=== PATIENT | female | born 1965 | race Caucasian/White ===

== ENCOUNTER 2016-07-10 11:31 | Emergency (ER) | payer MEDICAID ==
[2016-07-10 11:49] VITALS: RESP 18; BMI 29.7
[2016-07-10 12:02] VITALS: TEMP 98
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
[2016-07-10 13:08] LABS: URINE BILIRUBIN NEGATIVE (NEGATIVE); URINE BLOOD NEGATIVE (NEGATIVE); URINE GLUCOSE (UA) NEGATIVE (NEGATIVE); URINE KETONE NEGATIVE (NEGATIVE); URINE LEUKOCYTE ESTERASE TRACE Leu/uL (NEGATIVE); URINE PROTEIN TRACE mg/dL (<30 mg/dL); URINE UROBILINOGEN 0.2 E.U./dL (<1 E.U./dL)
[2016-07-10 13:10] LABS: URINE APPEARANCE CLEAR (CLEAR); URINE COLOR YELLOW (YELLOW)
[2016-07-10 13:19] LABS: URINE RBC NEGATIVE /hpf (0-2); URINE WBC 0 - 2 /hpf (0-6)
[2016-07-10 13:27] VITALS: BP 144/58; PULSE 89; O2SAT 100
[2016-07-10] MEDS ORDERED: Albuterol-Ipratrop 3 mg / 0.5 (3 ml) UD ONE (23:04)
== END 2016-07-10 13:45 | disposition home or self-care (01) ==
LOC: ED 11:31
DX: M54.5 Low back pain (principal)
CPT/HCPCS: 81001; 84703; 87086; 96372; 99283; J1885

== ENCOUNTER 2018-03-15 17:28 | Emergency (ER) | payer OTHER, MEDICAID ==
[2018-03-15 18:00] VITALS: RESP 18; TEMP 98.6; O2SAT 100
[2018-03-15 18:04] VITALS: BMI 31.6
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
[2018-03-15] MEDS ORDERED: Methocarbamol 500 MG Tab PO ONE (23:01)
[2018-03-15 23:52] VITALS: BP 135/89; PULSE 85
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
--- NOTE | 2018-03-16 20:43 | CARD ---
APPROVED REPORT Date of service: 03/15/2018 EKG Measurement Heart [id number] <Conclusion> Normal sinus rhythm Normal Electrocardiogram
== END 2018-03-15 23:25 | disposition home or self-care (01) ==
LOC: ED 17:28
DX: T14.8XXA Other injury of unspecified body region, initial encounter (principal); M62.838 Other muscle spasm; V43.52XA Car driver injured in collision with other type car in traffic accident, initial encounter; W22.11XA Striking against or struck by driver side automobile airbag, initial encounter; Y92.410 Unspecified street and highway as the place of occurrence of the external cause

== ENCOUNTER 2018-06-07 08:42 | Emergency (ER) | payer OTHER, MEDICAID ==
[2018-06-07 08:49] VITALS: BMI 34.7
[2018-06-07 08:57] VITALS: RESP 18
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
[2018-06-07 11:19] VITALS: BP 138/86; PULSE 69; TEMP 98.7; O2SAT 97
--- NOTE | 2018-06-07 18:11 | CARD ---
APPROVED REPORT Date of service: 06/07/2018 EKG Measurement Heart [id number] <Conclusion> Normal sinus rhythm Poor R wave progression in Precordial leads, could be positional Otherwise normal ECG
== END 2018-06-07 11:24 | disposition home or self-care (01) ==
LOC: ED 08:42
DX: S20.01XA Contusion of right breast, initial encounter (principal); V47.5XXA Car driver injured in collision with fixed or stationary object in traffic accident, initial encounter; W22.10XA Striking against or struck by unspecified automobile airbag, initial encounter; Y92.410 Unspecified street and highway as the place of occurrence of the external cause
CPT/HCPCS: 71046; 93005; 96372; 99284; J1885